=== PATIENT | female | born 1995 | race Two or more races ===

== ENCOUNTER 2017-08-08 19:49 | Emergency (ER) | payer OTHER ==
[2017-08-08] MEDS ORDERED: ACETAMINOPHEN 325 MG TABLET (FP) PO ONE (20:03)
[2017-08-08 20:04] VITALS: BP 139/80; BMI 22.1
--- NOTE | 2017-08-08 20:11 | PDOC ---
Rapid Medical Evaluation Time Seen by Provider: 08/08/17 20:00 Medical Evaluation: I have performed a brief in-person evaluation of this patient. The patient presents with a chief complaint of: tactile fever x 3 days. decreased appetite. had 650mg of tylenol this morning and 1 capsule of ibuprofen at 6pm. Pertinent physical exam findings: Patient appears really well. No cough. No sore throat. I have ordered the following: hcg, tylenol The patient will proceed to the ED for further evaluation.
[2017-08-08 21:52] VITALS: PULSE 90; TEMP 99
--- NOTE | 2017-08-08 21:57 | PDOC ---
History of Present Illness - General Chief Complaint: Cold Symptoms Stated Complaint: FEVER Time Seen by Provider: 08/08/17 20:00 History Source: Patient Exam Limitations: No Limitations - History of Present Illness Initial Comments: 21-year-old female presents for evaluation of malaise and congestion. She reports tactile fever night sweats and chills. 08/08/17 21:53 Past History - Past Medical History Allergies/Adverse Reactions: Allergies Allergy/AdvReac Type Severity Reaction Status Date / Time No Known Allergies Allergy Verified 08/08/17 20:02 Home Medications: Ambulatory Orders NK [No Known Home Medication] 08/08/17 COPD: No - Suicide/Smoking/Psychosocial Hx Smoking History: Never smoked Review of Systems - Review of Systems Constitutional: Yes: See HPI, Chills, Diaphoresis, Fever, Malaise, Night Sweats HEENTM: Yes: Nose Congestion. No: Ear Discharge, Throat Pain, Throat Swelling, Difficulty Swallowing, Mouth Swelling Respiratory: Yes: Cough. No: Orthopnea, Shortness of Breath, SOB with Exertion , SOB at Rest, Stridor, Wheezing, Productive cough, Hemoptysis Cardiac (ROS): No: Chest Pain, Lightheadedness, Chest Tightness All Other Systems: Reviewed and Negative *Physical Exam - Vital Signs Last Vital Signs Temp Pulse Resp BP Pulse Ox 99.0 F 90 18 139/80 98 08/08/17 21:52 08/08/17 21:52 08/08/17 20:02 08/08/17 20:02 08/08/17 20:02 - Physical Exam Comments: 08/08/17 21:55 General Appearance: Well-developed, well-nourished A&O 3 NAD Head: NC/AT Ears: External auditory canals are normal and clear; tympanic membranes are normal; hearing is grossly intact Nose: Slightly injected no discharge Throat and Oral cavity: Pharynx is clear without inflammation swelling exudate no lesions teeth and gingiva are normal Neck: Supple nontender without lymphadenopathy masses or thyromegaly Cardiac: S1 and S2 without murmurs no peripheral edema cyanosis or pallor; extremities are warm and well-perfused; capillary refill is less than 2 seconds without carotid bruits Lungs: CTA and Percussion no rales or rhonchi or wheezing breath sounds are full bilaterally Abdomen: Positive bowel sounds; soft nondistended, nontender, no guarding or rebound tenderness; no masses Musculoskeletal; Adequately aligned spine range of motion intact to spine and extremities Neurologic: Cranial nerves II-XII are grossly intact strength and sensation are symmetric and intact cerebellar testing is negative Skin: Normal color and temperature normal texture turgor no lesions or eruptions ED Treatment Course - ADDITIONAL ORDERS Additional order review: Laboratory Results 08/08/17 21:20 Urine HCG, Qual Negative - Medications Given in the ED: ED Medications Discontinued Medications Generic Name Dose Route Start Last Admin Trade Name Judi PRN Reason Stop Dose Admin Acetaminophen 975 mg 08/08/17 20:03 08/08/17 20:18 Tylenol - PO 08/08/17 20:04 975 mg ONCE ONE Administration *DC/Admit/Observation/Transfer Diagnosis at time of Disposition: Viral syndrome - Discharge Dispostion Disposition: HOME Condition at time of disposition: Stable Admit: No - Referrals Referrals: Dagoberto Wiggins MD [Primary Care Provider] - - Patient Instructions Printed Discharge Instructions: How to Avoid a Cold or Flu, DI for Viral Upper Respiratory Infection -- Adult, DI for Common Cold Additional Instructions: Take Tylenol and Motrin as prescribed for fever and bodyaches follow up with her primary care doctor in 1-2 days. Return to the emergency room if symptoms worsen or go on resolved prior to follow-up - Post Discharge Activity
== END 2017-08-08 21:57 | disposition home or self-care (01) ==
LOC: JERFT 19:49
DX: J06.9 Acute upper respiratory infection, unspecified (principal); B97.89 Other viral agents as the cause of diseases classified elsewhere
CPT/HCPCS: 84703; 99281-25

== ENCOUNTER 2017-08-09 15:36 | Emergency (ER) | payer OTHER ==
[2017-08-09 15:49] VITALS: BP 119/69; PULSE 115; TEMP 100.1; BMI 22.1
--- NOTE | 2017-08-09 15:50 | PDOC ---
Rapid Medical Evaluation Chief Complaint: Cold Symptoms Time Seen by Provider: 08/09/17 15:45 Medical Evaluation: Allergies Allergy/AdvReac Type Severity Reaction Status Date / Time No Known Allergies Allergy Verified 08/08/17 20:02 08/09/17 15:46 I have performed a brief in-person evaluation of this patient. The patient presents with a chief complaint of: fever w/ malaise and body aches x 4 days. Seen in ED yesterday when fever was recorded at 102, dx w/ viral URI and dc w/ supportive treatment. No new symptoms today. Denies any pmhx Pertinent physical exam findings:Low grade fever w/ HR of 115 but well appearing I have ordered the following:nothing The patient will proceed to the ED for further evaluation. Discharge Disposition - Diagnosis Fever Qualifiers: Fever type: unspecified Qualified Code(s): R50.9 - Fever, unspecified - Referrals Referrals: Dagoberto Wiggins MD [Primary Care Provider] - - Patient Instructions - Post Discharge Activity
== END 2017-08-09 16:00 | disposition left against medical advice (07) ==
LOC: JERFT 15:36
DX: Z53.21 Procedure and treatment not carried out due to patient leaving prior to being seen by health care provider (principal)
CPT/HCPCS: 99281-25

== ENCOUNTER 2021-02-22 19:25 | Inpatient (IN) | payer OTHER ==
[2021-02-22] MEDS ORDERED: DEXTROSE 5%-LACTATED RINGERS 1,000 ML IV SCH (20:30)
[2021-02-22 20:51] LABS: BASO % 0.3 % (0-2.0); EOS % 2.5 % (0-4.5); HEMATOCRIT 32.7 % (32.4-45.2); HEMOGLOBIN 11.1 GM/dL (10.7-15.3); LYMPH % 16.7 % (8-40); MCH 30.6 pg (25.7-33.7); MEAN CELL VOLUME 89.9 fl (80-96); MEAN PLT VOLUME 7.6 fl (7.5-11.1); MONO % 5.7 % (3.8-10.2); NEUT % 74.8 % (42.8-82.8); PLATELET COUNT 179 10^3/uL (134-434); RBC 3.64 M/mm3 (3.60-5.2); RDW 13.9 % (11.6-15.6); WHITE BLOOD COUNT 8.4 K/mm3 (4.0-10.0)
[2021-02-22 21:00] VITALS: BMI 27.6
[2021-02-22] MEDS ORDERED: DINOPROSTONE 10 MG VAGINAL SUPPOSITORY VG ONE (21:00)
[2021-02-22 21:01] LABS: INR 0.94 (0.83-1.09); PROTHROMBIN TIME (PATIENT) 10.5 SEC (9.7-13.0)
[2021-02-22 21:03] LABS: ACTIVATED PTT 24.8 SECONDS (25.2-36.5)
[2021-02-22 21:09] LABS: CALCIUM 8.7 mg/dL (8.5-10.1)
[2021-02-22 21:11] LABS: BLOOD UREA NITROGEN 5.9 mg/dL (7-18)
[2021-02-22 21:14] LABS: CREATININE 0.7 mg/dL (0.55-1.3)
[2021-02-22] MEDS: ELECTROLYTE-148 SOLN 1,000 ML IV SCH (23:00)
[2021-02-22] MEDS ORDERED: PROMETHAZINE HCL 25 MG/1 ML VIAL IVPUSH ONE (23:15)
[2021-02-22] MEDS ORDERED: BUTORPHANOL TARTRATE 1 MG/ML VIAL IVPB PRN (23:15)
[2021-02-23] MEDS: ELECTROLYTE-148 SOLN 1,000 ML IV SCH (05:00)
[2021-02-23] MEDS ORDERED: OXYTOCIN 30 UNITS in 0.9% NS 30 UNIT/500 ML INFUS.BAG IVPB ONE (06:29)
[2021-02-23] MEDS ORDERED: OXYTOCIN 30 UNITS in 0.9% NS 30 UNIT/500 ML INFUS.BAG IVPB SCH ×2 (06:30→07:00)
[2021-02-23] MEDS ORDERED: morphine SULFATE (PF) 1 MG/2 ML SYRINGE ONE (12:56)
[2021-02-23] MEDS ORDERED: ePHEDrine SULFATE 50 MG/1 ML AMPULE ONE (13:13)
[2021-02-23] MEDS ORDERED: ACETAMINOPHEN 325 MG TABLET (FP) PO PRN (13:43)
[2021-02-23] MEDS ORDERED: IBUPROFEN 800 MG/8 ML IJ IVPB PRN (13:43)
[2021-02-23] MEDS ORDERED: METHYLERGONOVINE MALEATE 0.2 MG/1 ML AMP IM PRN (13:43)
[2021-02-23] MEDS ORDERED: WITCH HAZEL 50% (TUCKS) 40 PAD/JAR PAD TP PRN (13:43)
[2021-02-23] MEDS ORDERED: IBUPROFEN 800 MG/8 ML IJ IVPB ONE (14:50)
[2021-02-23] MEDS ORDERED: OXYTOCIN 20 UNITS in 0.9% NS 20 UNIT/1,000 ML INFUS.BAG IV ONE (14:50)
[2021-02-23] MEDS: OXYTOCIN 20 UNITS in 0.9% NS 20 UNIT/1,000 ML INFUS.BAG IV SCH (14:56)
[2021-02-23 15:12] LABS: CORD HCO3 24.7 mmHg (20-29); CORD PCO2 59.1 mmHg (30-78); CORD pH 7.239 (7.14-7.44)
[2021-02-23 15:56] LABS: CORD HCO3 23.5 mmHg (20-29); CORD PCO2 46.6 mmHg (30-78); CORD pH 7.32 (7.14-7.44)
[2021-02-23] MEDS: FERROUS SO4 325 MG TABLET (FP) PO SCH (16:32)
[2021-02-23] MEDS: SIMETHICONE 80 MG TAB.CHEW (FP) PO PRN (22:30)
[2021-02-24] MEDS ORDERED: oxyCODONE HCL 5 MG TABLET PO PRN ×2 (01:43→08:00)
[2021-02-24] MEDS: IBUPROFEN 600 MG TABLET (FP) PO PRN ×2 (06:24→14:49)
[2021-02-24 07:32] LABS: BASO % 0.4 % (0-2.0); EOS % 2.1 % (0-4.5); HEMATOCRIT 32.1 % (32.4-45.2); HEMOGLOBIN 11.1 GM/dL (10.7-15.3); LYMPH % 16.3 % (8-40); MCH 31.3 pg (25.7-33.7); MCHC 34.5 g/dl (32.0-36.0); MEAN CELL VOLUME 90.8 fl (80-96); MEAN PLT VOLUME 7.8 fl (7.5-11.1); MONO % 7.8 % (3.8-10.2); NEUT % 73.4 % (42.8-82.8); PLATELET COUNT 162 10^3/uL (134-434); RBC 3.53 M/mm3 (3.60-5.2); RDW 13.5 % (11.6-15.6); WHITE BLOOD COUNT 9.4 K/mm3 (4.0-10.0)
[2021-02-24] MEDS ORDERED: OXYTOCIN 20 UNITS in 0.9% NS 20 UNIT/1,000 ML INFUS.BAG IV ONE (08:57)
[2021-02-24] MEDS: OXYTOCIN 20 UNITS in 0.9% NS 20 UNIT/1,000 ML INFUS.BAG IV SCH (09:07)
[2021-02-24] MEDS: FERROUS SO4 325 MG TABLET (FP) PO SCH ×2 (09:09→19:52)
[2021-02-24] MEDS: PRENATAL VITAMINS W/ FOLIC ACID TABLET (FP) PO SCH (09:09)
[2021-02-24] MEDS ORDERED: DIPHTH,PERTUSS(ACELL),TET 0.5 ML DISP.SYRIN IM ONE (10:00)
[2021-02-24] MEDS ORDERED: BISACODYL 10 MG SUPP.RECT RC PRN (13:43)
[2021-02-24] MEDS: SIMETHICONE 80 MG TAB.CHEW (FP) PO PRN (14:50)
[2021-02-25] MEDS: IBUPROFEN 600 MG TABLET (FP) PO PRN ×4 (06:29→21:44)
[2021-02-25] MEDS: PRENATAL VITAMINS W/ FOLIC ACID TABLET (FP) PO SCH (09:34)
[2021-02-25] MEDS: FERROUS SO4 325 MG TABLET (FP) PO SCH ×2 (09:34→17:24)
[2021-02-25] MEDS: SIMETHICONE 80 MG TAB.CHEW (FP) PO PRN ×2 (13:41→17:25)
[2021-02-26 08:44] LABS: BASO % 0.8 % (0-2.0); EOS % 6.5 % (0-4.5); HEMATOCRIT 31.4 % (32.4-45.2); HEMOGLOBIN 10.9 GM/dL (10.7-15.3); LYMPH % 28.1 % (8-40); MCH 31.1 pg (25.7-33.7); MCHC 34.9 g/dl (32.0-36.0); MEAN CELL VOLUME 89.1 fl (80-96); MEAN PLT VOLUME 7.6 fl (7.5-11.1); MONO % 7.6 % (3.8-10.2); PLATELET COUNT 196 10^3/uL (134-434); RBC 3.52 M/mm3 (3.60-5.2); RDW 13.4 % (11.6-15.6); WHITE BLOOD COUNT 8.1 K/mm3 (4.0-10.0)
[2021-02-26 10:19] VITALS: BP 116/75; PULSE 83; TEMP 98.1
[2021-02-26] MEDS: SIMETHICONE 80 MG TAB.CHEW (FP) PO PRN (10:32)
[2021-02-26] MEDS: IBUPROFEN 600 MG TABLET (FP) PO PRN (10:32)
[2021-02-26] MEDS: PRENATAL VITAMINS W/ FOLIC ACID TABLET (FP) PO SCH (10:32)
[2021-02-26] MEDS: FERROUS SO4 325 MG TABLET (FP) PO SCH (10:32)
== END 2021-02-26 14:00 | disposition home or self-care (01) | DRG 540 ==
LOC: JLDR 19:25 → J3W 02-23 15:15
PROVIDERS: ADMIT Obstetrics & Gynecology; ATTEND Obstetrics & Gynecology
PROC: 3E0P7VZ Introduction of Hormone into Female Reproductive, Via Natural or Artificial Opening (ICD-10-PCS; 2021-02-22)
PROC: 10D00Z1 Extraction of Products of Conception, Low, Open Approach (ICD-10-PCS; principal; 2021-02-23)
DX: O62.9 Abnormality of forces of labor, unspecified (principal); O36.63X0 Maternal care for excessive fetal growth, third trimester, not applicable or unspecified; O48.0 Post-term pregnancy; O77.0 Labor and delivery complicated by meconium in amniotic fluid; Z3A.41 41 weeks gestation of pregnancy; Z37.0 Single live birth
CPT/HCPCS: 36415; 36600; 80048; 82803; 85025; 85610; 85730; 86780; 86850; 86900; 86901; 88307-TC; 90715; C9803; U0003; U0005

== ENCOUNTER 2023-03-04 23:42 | Emergency (ER) | payer OTHER ==
[2023-03-04 23:49] VITALS: BMI 22.1
[2023-03-05] MEDS ORDERED: ACETAMINOPHEN 1000 MG/100 ML BAG IVPB ONE (00:32)
[2023-03-05] MEDS ORDERED: ACETAMINOPHEN INJECTION 100 ML IVPB ONE (00:38)
[2023-03-05 01:09] LABS: BASO % 0.6 % (0-2.0); EOS % 1.2 % (0-4.5); HEMATOCRIT 37.7 % (32.4-45.2); HEMOGLOBIN 12.6 GM/dL (10.7-15.3); LYMPH % 27.1 % (8-40); MCH 29.8 pg (25.7-33.7); MCHC 33.3 g/dl (32.0-36.0); MEAN CELL VOLUME 89.4 fl (80-96); MEAN PLT VOLUME 7.7 fl (7.5-11.1); MONO % 7.6 % (3.8-10.2); NEUT % 63.5 % (42.8-82.8); PLATELET COUNT 216 10^3/uL (134-434); RBC 4.22 M/mm3 (3.60-5.2); RDW 13.5 % (11.6-15.6); WHITE BLOOD COUNT 6.5 K/mm3 (4.0-10.0)
[2023-03-05 01:11] LABS: INR 1.07 (0.83-1.09); PROTHROMBIN TIME (PATIENT) 12.4 SEC (9.7-13.0)
[2023-03-05 01:14] LABS: ACTIVATED PTT 24.6 SECONDS (25.2-36.5)
[2023-03-05 01:29] LABS: POTASSIUM 3.7 mmol/L (3.5-5.1)
[2023-03-05 01:31] LABS: CALCIUM 8.5 mg/dL (8.5-10.1)
[2023-03-05 01:32] LABS: ALBUMIN 3.9 g/dl (3.4-5.0); BLOOD UREA NITROGEN 10.6 mg/dL (7-18)
[2023-03-05 01:35] LABS: CREATININE 0.9 mg/dL (0.55-1.3)
[2023-03-05 01:37] LABS: BILIRUBIN,TOTAL 0.4 mg/dL (0.2-1); TOT PROT 7.1 g/dl (6.4-8.2)
[2023-03-05 04:15] VITALS: BP 116/72; PULSE 75; RESP 15; TEMP 97.9
== END 2023-03-05 04:30 | disposition home or self-care (01) ==
LOC: JER 23:42
PROC: 3E033NZ Introduction of Analgesics, Hypnotics, Sedatives into Peripheral Vein, Percutaneous Approach (ICD-10-PCS; principal; 2023-03-05)
DX: R07.81 Pleurodynia (principal); R06.02 Shortness of breath
CPT/HCPCS: 36415; 71275-TC; 80053; 84484; 84702; 85025; 85379; 85610; 85730; 93005; 93010; 99285-25; Q9967